=== PATIENT | female | born 1965 | race Hispanic/Latino ===

== ENCOUNTER 2017-01-13 09:38 | Outpatient (CLI) | payer OTHER ==
[~2017-01-13 09:38] MED LIST: PROVENTIL IH ONE
== END 2017-01-13 09:39 | disposition home or self-care (01) ==
LOC: PF 09:38
PROVIDERS: ATTEND Internal Medicine
DX: J45.909 Unspecified asthma, uncomplicated (principal); F32.9 Major depressive disorder, single episode, unspecified; G43.909 Migraine, unspecified, not intractable, without status migrainosus; M72.2 Plantar fascial fibromatosis; M94.0 Chondrocostal junction syndrome [Tietze]; S46.912A Strain of unspecified muscle, fascia and tendon at shoulder and upper arm level, left arm, initial encounter; S46.911A Strain of unspecified muscle, fascia and tendon at shoulder and upper arm level, right arm, initial encounter; M13.862 Other specified arthritis, left knee; S66.811A Strain of other specified muscles, fascia and tendons at wrist and hand level, right hand, initial encounter; M13.861 Other specified arthritis, right knee; S83.207A Unspecified tear of unspecified meniscus, current injury, left knee, initial encounter; S83.206A Unspecified tear of unspecified meniscus, current injury, right knee, initial encounter; F51.01 Primary insomnia; S76.011A Strain of muscle, fascia and tendon of right hip, initial encounter; S16.1XXA Strain of muscle, fascia and tendon at neck level, initial encounter; Y93.89 Activity, other specified; X58.XXXA Exposure to other specified factors, initial encounter; Y99.8 Other external cause status; Y92.89 Other specified places as the place of occurrence of the external cause
CPT/HCPCS: 94060; 94640; 94729